=== PATIENT | male | born 1995 | race Caucasian/White ===

== ENCOUNTER 2017-05-20 00:42 | Emergency (ER) | payer OTHER, MEDICAID ==
[2017-05-20] MEDS ORDERED: ACETAMINOPHEN 500 MG TAB PO ONE ×2 (00:46)
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
[2017-05-20 00:52] VITALS: BP 134/98; PULSE 88; RESP 16; TEMP 98.2; O2SAT 97
== END 2017-05-20 01:37 | disposition home or self-care (01) ==
DX: S80.01XA Contusion of right knee, initial encounter (principal); V03.10XA Pedestrian on foot injured in collision with car, pick-up truck or van in traffic accident, initial encounter

== ENCOUNTER 2017-08-12 14:08 | Emergency (ER) | payer OTHER, MEDICAID ==
--- NOTE | 2017-08-12 16:01 | EDPHY ---
H & P Stated Complaint: l sided abd pain and blood in stool for a month Source: Patient Exam Limitations: No limitations - Personal History Current Tetanus/Diphtheria Vaccine: Unsure - Medical/Surgical History Hx Asthma: No Hx Chronic Respiratory Disease: No Hx Diabetes: No Hx Cardiac Disease: No Hx Renal Disease: No Hx Cirrhosis: No Hx Alcoholism: No Hx HIV/AIDS: No Hx Splenectomy or Spleen Trauma: No Other PMH: anxiety, PTSD - Social History Smoking Status: Current every day smoker Time Seen by Provider: 08/12/17 15:05 HPI/ROS: HPI: This is a 22-year-old male presents with Chief Complaint: l sided abd pain and blood in stool for a month Location: GI Quality: Blood in stool Duration: 1 month Signs and Symptoms: no fever, no nausea, no vomiting, no hematemesis, + blood in stool, no abdominal bloating, no diarrhea, no back pain, no urinary symptoms , no testicular/groin pain, no indigestion, no chest pain, no shortness of breath Timing: Daily Severity: [id number] Context: Patient has a history of anxiety, PTSD presents with complaints of blood in stool almost every day but he is unable to tell me if it is just when he wipes on the toilet tissue, dripping into the toilet water, etc. Patient reports that he is extremely anxious and upset that his girlfriend almost left him in the waiting room. She reports that the he has also had left upper quadrant left lower quadrant intermittent, crampy, abdominal pain, that is nonradiating in nature over the last several weeks. He has not been eating as much food as he normally does. Denies fever/nausea/vomiting/food intolerance/ urinary symptoms. His girlfriend and him have recently moved in together and have been together for total 4 months. Modifying Factors: None Comment: ROS: see HPI Constitutional: No fever, no chills, no weight loss Eyes: No blurred vision Respiratory: No shortness of breath, no cough Cardiovascular: No chest pain, no palpitations Gastrointestinal: No nausea, no vomiting, no diarrhea, no hematemesis, + blood in stool Genitourinary: No dysuria, no blood in urine Extremities: No myalgias, no edema Neurologic: No weakness, no numbness Skin: No rashes, no petechiae Hematologic: No bruising, no bleeding MEDICAL/SURGICAL/SOCIAL HISTORY: Medical history: Anxiety, PTSD Surgical history: Denies Social history: Employed. Currently in a relationship. CONSTITUTIONAL: Extremely anxious young adult well-appearing male, awake and alert, no obvious distress HEENT: Atraumatic and normocephalic, PERRL, EOMI. Tympanic membranes clear. Oropharynx clear, no exudate and moist pink mucosa. Airway patent. No lymphadenopathy. No meningismus. Cardiovascular: Normal S1/S2, regular rate, regular rhythm, without murmur rub or gallop. PULMONARY/CHEST: Symmetrical and nontender. Clear to auscultation bilaterally. Good air movement. No accessory muscle usage. ABDOMEN: Soft, nondistended, moderate left upper quadrant and left lower quadrant tenderness, no rebound, no guarding, no peritoneal signs, no masses or organomegaly. No CVAT. Hypoactive bowel sounds heard. RECTAL: Good sphincter tone, light brown stool in vault, no external hemorrhoids , no fissures, no palpable masses, guaiac negative EXTREMITIES: 2/2 pulses, strength 5/5, no deformities, no clubbing, no cyanosis or edema. NEUROLOGICAL: no focal neuro deficits. GCS 15. SKIN: Warm and dry, no erythema. no rash. Good capillary refill. (Anna Villalobos) Constitutional: Initial Vital Signs Temperature (C) 36.5 C 08/12/17 14:11 Heart Rate 70 08/12/17 14:11 Respiratory Rate 18 08/12/17 14:11 Blood Pressure 141/87 H 08/12/17 14:11 O2 Sat (%) 99 08/12/17 14:11 O2 Delivery Mode Room Air Allergies/Adverse Reactions: No Known Allergies Allergy (Verified 08/12/17 14:10) Home Medications: Medication Instructions Recorded clonazePAM [klonoPIN (*)] 1 mg PO BID #10 tab 08/12/17 Medical Decision Making - Diagnostics Imaging Results: Imaging Impressions Abdomen CT 08/12/17 16:11 Impression: 1. Partially visualized low-density collection along the inferior aspect of the base of the penis is of uncertain clinical significance. No significant associated inflammation to suggest abscess. Query recent trauma to this area. 2. Mildly enlarged appendix but no convincing evidence of appendicitis. 3. Scattered diverticulosis without evidence of diverticulitis. Dr. Roth discussed these findings in person with Dr. Sanchez on 08/12/2017 at 18:[address] abdomen pelvis reviewed by me and discussed with Dr. Gutierrez shows no obvious intra-abdominal pathology. The above swelling or fluid collection the base of the penis is noted (Chad Sanchez) ED Course/Re-evaluation: Labs, IV medications, guaiac stool, CT abdomen and pelvis scan Patient is clearly anxious and is borderline having hyperventilation syndrome. IV Ativan 1 mg given along with 1 L normal saline No signs of external thrombosed hemorrhoids/rectal masses/diverticulitis/ appendicitis/obstruction/dehydration/anemia/coagulopathy/electrolyte imbalance/ acute kidney injury/transaminitis Guaiac negative 1715: End of shift. Signed out to Dr. Sanchez pending results of CT abdomen and pelvis scan. Suspect disposition will be to discharge home with Gastroenterology follow-up for irritable bowel type symptoms. This patient was seen under the supervision of my secondary supervising physician. I evaluated care for this patient independently. Discussed this patient with Dr. Sanchez who did not see the patient. (Anna Villalobos) Patient is seen by me at 7:20 p.m.--patient is stable. He and I discussed imaging and lab results. We discussed treatment plan including importance of follow-up and further evaluation as well as criteria for return. He expresses understanding and agreement (Chad Sanchez) Differential Diagnosis: Differential diagnosis includes but is not limited to constipation, gastroenteritis, irritable bowel syndrome, diverticulitis, hemorrhoids. (Anna Villalobos) - Data Points Laboratory Results: Laboratory Results 08/12/17 16:15 08/12/17 16:15 08/12/17 08/12/17 08/12/17 16:15 16:15 16:15 WBC 7.74 10^3/uL 10^3/uL (3.80-9.50) RBC 5.12 10^6/uL 10^6/uL (4.40-6.38) Hgb 16.1 g/dL g/dL (13.7-17.5) Hct 42.9 % % (40.0-51.0) MCV 83.8 fL fL (81.5-99.8) MCH 31.4 pg pg (27.9-34.1) MCHC 37.5 g/dL H g/dL (32.4-36.7) RDW 12.9 % % (11.5-15.2) Plt Count 222 10^3/uL 10^3/uL (150-400) MPV 11.1 fL fL (8.7-11.7) Neut % (Auto) 58.7 % % (39.3-74.2) Lymph % (Auto) 32.2 % % (15.0-45.0) Mora % (Auto) 7.8 % % (4.5-13.0) Eos % (Auto) 0.4 % L % (0.6-7.6) Baso % (Auto) 0.6 % % (0.3-1.7) Nucleat RBC Rel Count 0.0 % % (0.0-0.2) Absolute Neuts (auto) 4.55 10^3/uL 10^3/uL (1.70-6.50) Absolute Lymphs (auto) 2.49 10^3/uL 10^3/uL (1.00-3.00) Absolute Monos (auto) 0.60 10^3/uL 10^3/uL (0.30-0.80) Absolute Eos (auto) 0.03 10^3/uL 10^3/uL (0.03-0.40) Absolute Basos (auto) 0.05 10^3/uL 10^3/uL (0.02-0.10) Absolute Nucleated RBC 0.00 10^3/uL 10^3/uL (0-0.01) Immature Gran % 0.3 % % (0.0-1.1) Immature Gran # 0.02 10^3/uL 10^3/uL (0.00-0.10) PT 13.1 SEC SEC (12.0-15.0) INR 0.97 (0.83-1.16) APTT 24.8 SEC SEC (23.0-38.0) Sodium 143 mEq/L mEq/L (135-145) Potassium 4.4 mEq/L mEq/L (3.5-5.2) Chloride 109 mEq/L mEq/L (97-110) Carbon Dioxide 17 mEq/l L mEq/l (22-31) Anion Gap 17 mEq/L H mEq/L (8-16) BUN 12 mg/dL mg/dL (7-23) Creatinine 1.0 mg/dL mg/dL (0.7-1.3) Estimated GFR > 60 Glucose 94 mg/dL mg/dL (70-100) Calcium 10.6 mg/dL H mg/dL (8.5-10.4) Total Bilirubin 1.3 mg/dL mg/dL (0.1-1.4) Conjugated Bilirubin 0.4 mg/dL mg/dL (0.0-0.5) Unconjugated Bilirubin 0.9 mg/dL mg/dL (0.0-1.1) AST 34 IU/L IU/L (17-59) ALT 29 IU/L IU/L (21-72) Alkaline Phosphatase 112 IU/L IU/L (38-126) Total Protein 7.9 g/dL g/dL (6.3-8.2) Albumin 5.1 g/dL H g/dL (3.5-5.0) Lipase 99 IU/L IU/L (23-300) Stool Occult Bld Scrn 08/12/17 16:15 WBC RBC Hgb Hct MCV MCH MCHC RDW Plt Count MPV Neut % (Auto) Lymph % (Auto) Mora % (Auto) Eos % (Auto) Baso % (Auto) Nucleat RBC Rel Count Absolute Neuts (auto) Absolute Lymphs (auto) Absolute Monos (auto) Absolute Eos (auto) Absolute Basos (auto) Absolute Nucleated RBC Immature Gran % Immature Gran # PT INR APTT Sodium Potassium Chloride Carbon Dioxide Anion Gap BUN Creatinine Estimated GFR Glucose Calcium Total Bilirubin Conjugated Bilirubin Unconjugated Bilirubin AST ALT Alkaline Phosphatase Total Protein Albumin Lipase Stool Occult Bld Scrn NEGATIVE (NEGATIVE) Medications Given: Discontinued Medications Sodium Chloride (Ns) 1,000 mls @ 0 mls/hr IV EDNOW ONE; Wide Open PRN Reason: Protocol Stop: 08/12/17 17:17 Last Admin: 08/12/17 17:49 Dose: 1,000 mls Lorazepam (Ativan Injection) 1 mg IVP EDNOW ONE Stop: 08/12/17 16:11 Last Admin: 08/12/17 16:18 Dose: 1 mg Departure - Departure Disposition: Home, Routine, Self-Care Clinical Impression: Intermittent left lower quadrant abdominal pain Condition: Good Instructions: Irritable Bowel Syndrome (ED), Rectal Bleeding (ED) Additional Instructions: Consume a minimum of 8-10 glasses of water or electrolyte fluid replacement drinks that include Gatorade, Powerade, Pedialyte. Eat a bland diet for the next 48 hours and then slowly advance as tolerated. Return to the Emergency Room if symptoms do not resolve in the next 48-72 hours , you spike a fever > 102 F, or experience intractable abdominal pain/nausea/ vomiting. Please follow-up with Gastroenterology in 1-2 weeks if symptoms persist. Referrals: Benny Garvin MD [Medical Doctor] - As per Instructions [facility],. [Clinic] - As per Instructions Prescriptions: clonazePAM [klonoPIN (*)] 1 mg PO BID #10 tab
[2017-08-12] MEDS ORDERED: LORazepam 2 MG/ML INJ IVP ONE (16:10)
[2017-08-12 16:40] LABS: PLATELET COUNT 222 10^3/uL (150-400)
[2017-08-12] MEDS ORDERED: IOPAMIDOL (ISOVUE-300) 100 ML BTL ONE (16:42)
[2017-08-12 16:48] LABS: INR 0.97 (0.83-1.16); PROTIME(PATIENT) 13.1 SEC (12.0-15.0)
[2017-08-12] MEDS ORDERED: NS 1,000 ML IV ONE (17:16)
[2017-08-12 19:44] VITALS: BP 118/66; PULSE 71; RESP 16; TEMP 98.1; O2SAT 99
== END 2017-08-12 19:44 | disposition home or self-care (01) ==
DX: R10.32 Left lower quadrant pain (principal); F17.200 Nicotine dependence, unspecified, uncomplicated; E86.9 Volume depletion, unspecified
CPT/HCPCS: 96374; J2060; Q9967

== ENCOUNTER 2017-12-21 09:29 | Emergency (ER) | payer OTHER, MEDICAID ==
[2017-12-21] MEDS ORDERED: LORazepam 2 MG/ML INJ IVP ONE (09:55)
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
[2017-12-21] MEDS ORDERED: LORazepam 1 MG TAB PO ONE (10:13)
[2017-12-21 10:58] LABS: PLATELET COUNT 209 10^3/uL (150-400)
[2017-12-21 13:11] VITALS: BP 132/87
== END 2017-12-21 13:12 | disposition home or self-care (01) ==
DX: F41.9 Anxiety disorder, unspecified (principal); F17.200 Nicotine dependence, unspecified, uncomplicated
CPT/HCPCS: 96374; J2060

== ENCOUNTER 2018-04-01 10:10 | Emergency (ER) | payer OTHER, MEDICAID ==
[2018-04-01] MEDS ORDERED: NS 500 ML IV ONE (10:55)
--- NOTE | 2018-04-01 11:56 | EDPHY ---
H & P Time Seen by Provider: 04/01/18 10:56 HPI/ROS: HPI Chest discomfort, shortness of breath. 23-year-old male by private vehicle. He reports that over the last couple of days he has had intermittent chest discomfort and shortness of breath. He describes this as a sensation of his left lung being corroded. He describes this as air not filtering through his left lung correctly. He has been seen in our emergency department several times in the past for this complaint. He has had negative workups including troponin, EKG, chest x-ray and D-dimer. He states that it started bothering him again about 2 days ago. He has not seen a critical care clinical nurse specialist or his primary care physician regarding this complaint. He denies any prolonged sedentary activity. No history of coagulopathy. No cough. No fever. ROS: Constitutional: No fever, no chills. No weakness. Eyes: No discharge. No changes in vision. ENT: No sore throat. No nasal congestion or rhinorrhea. Respiratory: No cough. As. Cardiac: As above, no palpitations. Gastrointestinal: No abdominal pain, no vomiting, no diarrhea. Genitourinary: No hematuria. No dysuria or increased frequency with urination. Musculoskeletal: No back pain. No neck pain. No myalgias or arthralgias. Skin: No rashes. Neurological: No headache. No focal weakness or altered sensation. Past medical history: Anxiety, PTSD. Social history: Nonsmoker. Does not Vape. Denies IV drugs or street drugs. Here by himself. Was on the phone with his father when I came into the room. Physical Exam: General Appearance: Alert, anxious but no distress. This patient is responding to questions appropriately and in full sentences. This patient appears well-hydrated and well-nourished. Eyes: Pupils equal and round no pallor or injection. No lid edema, erythema or injection. Respiratory: There are no retractions, lungs are clear to auscultation with good air movement bilaterally. Cardiovascular: Regular rate and rhythm. No murmur. Gastrointestinal: Abdomen is soft and nontender, no masses, bowel sounds normal. No focal tenderness at McBurney's point. No Miller sign. Neurological: Motor sensory function is grossly intact. Cranial nerves are normal. Gait is normal. Skin: Warm and dry, no rashes. Musculoskeletal: Neck is supple and nontender. Extremities are symmetrical. All joints range without pain or impingement. Psychiatric: No agitation. No depression. Database: EKG: EKG time is 11:15 a.m.; EKG shows a narrow complex normal sinus rhythm with a ventricular rate of 73. Early repolarization pattern. The FL, QRS, QT intervals are within normal limits. There are no ST-T wave changes indicative of ischemic or injury pattern. No evidence of right heart strain. Interpreted by me. Imaging: Chest x-ray PA and lateral; the cardiac mediastinal silhouette is unremarkable. No evidence of infiltrate or pneumothorax. No acute cardiopulmonary disease process noted. Interpreted by me. Procedures: Emergency department course: Triage vital signs reviewed and are normal. IV was placed. He was placed on a monitor. EKG was obtained and reviewed by myself. 11:50 a.m., patient re-evaluated. Resting comfortably at this time. Results of his diagnostic workup discussed with him thoroughly. I feel he is safe for discharge. I feel his presentation is more psychosomatic in nature. However, he asked me if I can refer him to a specialist. I will refer him to pulmonology for re-evaluation and any further management. He is in agreement with this plan. He feels safe going home. Follow-up and return to emergency department precautions reviewed with him. All of his questions were answered. He was discharged from the emergency department in good condition. Differential Diagnosis: The differential diagnosis on this patient includes but is not limited to anxiety reaction, panic attack. Acute coronary syndrome, myocarditis, pericarditis, aortic dissection, pulmonary embolism, pneumonia, pneumothorax, CHF unlikely. This represents a partial list of diagnoses considered. These considerations are based on history, physical exam, past history, reassessment and diagnostic testing. Smoking Status: Current some day smoker Constitutional: Initial Vital Signs Temperature (C) 36.4 C 04/01/18 10:14 Heart Rate 74 04/01/18 10:14 Respiratory Rate 18 04/01/18 10:14 Blood Pressure 113/85 H 04/01/18 10:14 O2 Sat (%) 98 04/01/18 10:14 O2 Delivery Mode Room Air Allergies/Adverse Reactions: sulfamethoxazole [From Bactrim] Allergy (Verified 04/01/18 10:13) trimethoprim [From Bactrim] Allergy (Verified 09/14/18 10:13) Home Medications: Medication Instructions Recorded Doxycycline Inj 04/01/18 Remeron 04/01/18 Seroquel 04/01/18 Medical Decision Making - Diagnostics Imaging Results: Imaging Impressions Chest X-Ray 04/01/18 10:55 Impression: No acute cardiopulmonary process. - Data Points Laboratory Results: Laboratory Results 04/01/18 11:26 04/01/18 04/01/18 04/01/18 11:26 11:26 11:19 D-Dimer 0.34 ug/mLFEU ug/mLFEU (0.00-0.50) Sodium 140 mEq/L mEq/L (135-145) Potassium 4.3 mEq/L mEq/L (3.3-5.0) Chloride 108 mEq/L mEq/L (97-110) Carbon Dioxide 19 mEq/l L mEq/l (22-31) Anion Gap 13 mEq/L mEq/L (8-16) BUN 13 mg/dL mg/dL (7-23) Creatinine 1.0 mg/dL mg/dL (0.7-1.3) Estimated GFR > 60 Glucose 76 mg/dL mg/dL (70-100) Calcium 10.3 mg/dL mg/dL (8.5-10.4) POC Troponin I 0.00 ng/mL ng/mL (0.00-0.08) Medications Given: Discontinued Medications Sodium Chloride (Ns) 500 mls @ 1,000 mls/hr IV EDNOW ONE PRN Reason: Protocol Stop: 04/01/18 11:24 Last Admin: 04/01/18 11:22 Dose: 500 mls Point of Care Test Results: Chemistry 04/01/18 11:19 POC Troponin I 0.00 ng/mL ng/mL (0.00-0.08) Departure - Departure Disposition: Home, Routine, Self-Care Clinical Impression: Chest discomfort, Dyspnea Condition: Good Instructions: Chest Pain (ED), Dyspnea (ED) Additional Instructions: Read and follow provided instructions. Follow-up with pulmonology as discussed next week for re-evaluation. Return to the emergency department for worsening symptoms or other serious concerns. Referrals: Adela Anderson NP [Primary Care Provider] - As per Instructions Goivanni Cabral MD [Medical Doctor] - As per Instructions
[2018-04-01 11:59] VITALS: BP 132/89
--- NOTE | 2018-04-01 14:59 | CPEKG ---
Test Reason : OPEN Blood Pressure : / mmHG Vent. Rate : 073 BPM Atrial Rate : 077 BPM P-R Int : 149 ms QRS Dur : 094 ms QT Int : 366 ms P-R-T Axes : 015 013 047 degrees QTc Int : [address] elevation suggests acute pericarditis Confirmed by Alejandra Kelley ([id number]) on 04/01/2018 2:59:28 PM Referred By: Confirmed By:Alejandra Kelley
== END 2018-04-01 12:07 | disposition home or self-care (01) ==
DX: R07.9 Chest pain, unspecified (principal); R06.00 Dyspnea, unspecified; E86.9 Volume depletion, unspecified
CPT/HCPCS: 84484-PO